=== PATIENT | female | born 1975 | race Caucasian/White ===

== ENCOUNTER → 2020-09-29 | Outpatient (CLI) | payer OTHER | LOC: MC.RAD 14:30 | DX: Z12.31 Encounter for screening mammogram for malignant neoplasm of breast (principal); N64.59 Other signs and symptoms in breast; N63.20 Unspecified lump in the left breast, unspecified quadrant ==

== ENCOUNTER 2022-09-05 11:00 | Outpatient (RCR) | payer SELFPAY ==
[2022-09-02 12:09] VITALS: BP 111/52; PULSE 65; TEMP 98.3
--- NOTE | 2022-09-02 13:10 | NUR ---
Pt remained in dept until this time. No s/s of reaction. Gait is steady. Pt refuses wheelchair. She is escorted out to waiting room, states she feels well enough to walk out and exits with son.
[~2022-09-05] VITALS: Ht 165.1 cm; Wt 83.4 kg
[~2022-09-05 11:00] MED LIST: NATURAL IRON65 MG PO; PRIL40 PO
[2022-09-05 11:18] VITALS: BP 105/49; PULSE 63; TEMP 98.3
== END 2022-09-06 19:05 ==
LOC: EUO 11:00
DX: Z79.899 Other long term (current) drug therapy (principal)
CPT/HCPCS: J1756